=== PATIENT | female | born 1990 | race Caucasian/White ===

== ENCOUNTER → 2017-01-26 | Outpatient (CLI) | payer BC ==
[~2017-01-26] MED LIST: ALBU2.5V2 INH; ONDA4TAB7 PO
== END ==
LOC: LAB 17:12
PROVIDERS: ATTEND Family Medicine
DX: E66.9 Obesity, unspecified (principal)
CPT/HCPCS: 36415; 84439; 84443

== ENCOUNTER → 2017-01-30 | Outpatient (CLI) | payer BC ==
--- NOTE | 2017-01-30 10:59 | DI ---
Indication: ITS.REASON: E66.9 OBESITY palpable thyroid nodule PROCEDURE: US THYROID: Encounter: Initial Comparison: None Technique: Grayscale and color Doppler sonographic imaging of the thyroid gland was performed. Findings: Right thyroid lobe appears homogeneous and normal without focal mass or nodule. Left thyroid lobe also appears normal. Normal Doppler flow to both lobes. Thyroid isthmus is normal measuring 0.3 cm in diameter. Right lobe measures 4.5 x 1.4 x 1.4 cm. Left lobe measures 3.9 x 1.1 x 1.2 cm. Impression: Normal exam .
== END ==
LOC: IMA 09:43
PROVIDERS: ATTEND Family Medicine
DX: E66.9 Obesity, unspecified (principal)